=== PATIENT | male | born 1980 | race Caucasian/White ===

== ENCOUNTER 2023-11-20 17:10 | Emergency (ER) | payer MEDICAID ==
[~2023-11-20] VITALS: Ht 167.6 cm; Wt 67.0 kg
[2023-11-20 17:23] VITALS: TEMP 98.5; O2SAT 96
[2023-11-20 20:08] LABS: BASOPHILS % 0.7 % (0.0-2.0); EOSINOPHILS % 1.5 % (0.0-5.0); HEMATOCRIT. 44.9 % (42.0-52.0); HEMOGLOBIN. 15.5 g/dL (14.0-18.0); MEAN CORPUSCULAR HGB CONC 34.5 g/dL (31.0-37.0); MEAN CORPUSCULAR VOLUME 86.8 fL (80.0-94.0); MEAN PLATELET VOLUME 9.1 fl (7.4-10.4); MONOCYTES % 8.6 % (2.0-8.0); NEUTROPHILS % 52.2 % (40.0-76.0); PLATELET 182 x1000/uL (130-400); RED BLOOD CELL COUNT 5.17 mill/uL (4.7-6.1); WHITE BLOOD COUNT 8.8 x1000/uL (4.5-11.0)
[2023-11-20 20:17] LABS: CHLORIDE 103 mEq/L (98-107); POTASSIUM 3.5 mEq/L (3.5-5.1); SODIUM 137 mEq/L (136-145)
[2023-11-20 20:18] LABS: CARBON DIOXIDE 27 mEq/L (21-32)
[2023-11-20 20:19] LABS: CALCIUM 10.2 mg/dL (8.7-10.4)
[2023-11-20 20:23] LABS: CREATININE 1.2 mg/dL (0.6-1.3); GLUCOSE 70 mg/dL (70-105)
[2023-11-20 20:24] LABS: TROPONIN I HIGH SENSITIVITY 4 ng/L (3.0-53); UREA NITROGEN BLOOD 11 mg/dL (9-23)
[2023-11-20] MEDS ORDERED: IBUP-2029 MT (20:32)
[2023-11-20 21:29] VITALS: BP 125/83; PULSE 59; RESP 18; O2SAT 99
== END 2023-11-20 21:30 | disposition home or self-care (01) ==
LOC: ER 17:10 → EDBD 17:10 → ER 21:30
DX: R07.89 Other chest pain (principal)
CPT/HCPCS: 36415; 71045; 80048; 84484; 85025; 93005; 99285